=== PATIENT | female | born 1950 | race Caucasian/White ===

== ENCOUNTER 2019-10-01 01:03 | Inpatient (IN) | payer MEDICARE, MEDICAID ==
[~2019-10-01] VITALS: Ht 154.9 cm; Wt 61.4 kg
[~2019-10-01 01:03] MED LIST: ASPI-612 PO; CEPH250C92 PO; DULO-31 PO; ESOM40CA PO; HYDR1TAB PO; NOR5T PO; OMEP-84 PO; RAME8TAB17 PO; VAL5T PO; [UNRECOGNIZED DRUG - REMARK]
--- NOTE | 2019-10-01 01:24 | NUR ---
PT RECEIVED 2MG OF NARCAN WITH EMS
[2019-10-01] MEDS ORDERED: ondansetron/PF 4mg/2ml inj IV ONE (01:45)
[2019-10-01] MEDS ORDERED: normal saline 1000ML IV soln IVB ONE ×2 (01:45→03:30)
[2019-10-01 02:06] LABS: MEAN CORPUSCULAR VOLUME 85.3 FL (78-98); MEAN PLATELET VOLUME 9.5 FL (7.4-10.4); RED CELL DISTRIBUTION WIDTH 14.5 % (11.5-14.5)
[2019-10-01 02:08] LABS: HEMATOCRIT 39.3 % (35.0-45.0); MEAN CORPUSCULAR HEMOGLOBIN 28.2 PG (27.0-31.0); PLATELET COUNT 246 X10'3 (140-440); RED BLOOD COUNT 4.61 X10'6 (4.20-5.60); WHITE BLOOD COUNT 17.4 X10'3 (4.5-11.0)
--- NOTE | 2019-10-01 02:09 | NUR ---
WHEN ASKING THE SON ABOUT PT MEDICAL HX, HE REPORTS THAT SHE HAS HAD DIFFICULTY WITH MEMORY RECENTLY.
[2019-10-01 02:11] LABS: PARTIAL THROMBOPLASTIN TIME 23 SECONDS (22-32)
[2019-10-01 02:35] LABS: NUCLEATED RED BLOOD CELLS 1 /100WBC (0-0); PLATELET ESTIMATE NORMAL; TOTAL CELLS COUNTED 100
[2019-10-01 02:36] LABS: ANISOCYTOSIS 1+; ELLIPTOCYTES FEW
[2019-10-01 02:38] LABS: COLOR,URINE YELLOW (Yellow); GLUCOSE, URINE 250 mg/dl (Neg); KETONES,URINE NEGATIVE (Neg); LEUKOCYTE ESTERASE ,URINE MODERATE (Neg); NITRITES, URINE NEGATIVE (Neg); OCCULT BLOOD,URINE SMALL (Neg); PROTEIN,URINE TRACE mg/dl (Neg); UROBILINOGEN,URINE 0.2 E.U/dL (0.2-1.0)
[2019-10-01 02:40] LABS: ALANINE AMINOTRANSFERASE 15 U/L (12-78); ALBUMIN 3.3 G/DL (3.4-5.0); ALBUMIN/GLOBULIN RATIO 0.8 (1.1-1.5); ALKALINE PHOSPHATASE 139 IU/L (46-116); ANION GAP 18 (8-16); ASPARTATE AMINO TRANSFERASE 15 U/L (10-37); BILIRUBIN,TOTAL 0.3 MG/DL (0.1-1.0); BLOOD UREA NITROGEN 22 MG/DL (7-18); BUN/CREATININE RATIO 8.7 (6.6-38.0); CALCIUM 8.6 MG/DL (8.5-10.1); CHLORIDE 102 MMOL/L (99-107); CREATININE 2.52 MG/DL (0.40-0.90); ETHANOL < 0.010 GM/DL (0.0-0.010); GLUCOSE 308 MG/DL (70-104); MAGNESIUM 1.9 MG/DL (1.5-2.4); POTASSIUM 3.7 MMOL/L (3.5-5.1); SODIUM 142 MMOL/L (135-145); TOTAL CARBON DIOXIDE 22.2 MMOL/L (24-32); TOTAL PROTEIN 7.2 G/DL (6.4-8.2); eGFR 19 ML/MIN
[2019-10-01 02:46] LABS: UA COLLECTION TYPE NON-SPECIFIED
[2019-10-01 02:47] LABS: BACTERIA,URINE FEW /HPF (Neg); CLARITY,URINE SLIGHTLY CLOUDY (Clear); RBC,URINE 0-2 /HPF (0-2); SQUAMOUS EPITHELIAL CELL,UR MODERATE /LPF (FEW); WBC CLUMPS,URINE FEW /HPF (NEGATIVE)
[2019-10-01 02:51] LABS: URINE AMPHETAMINE SCREEN NEGATIVE (Neg); URINE BARBITUATE SCREEN NEGATIVE (Neg); URINE BENZODIAZEPINES SCREEN POSITIVE (Neg); URINE CANNABINOID SCREEN NEGATIVE (Neg); URINE COCAINE SCREEN NEGATIVE (Neg); URINE METHADONE SCREEN NEGATIVE (Neg); URINE OPIATE SCREEN POSITIVE (Neg); URINE PHENCYCLIDINE SCREEN NEGATIVE (Neg)
[2019-10-01] MEDS ORDERED: SUMA25TA35 PO (03:20)
[2019-10-01] MEDS ORDERED: DIAZ5TAB4 PO (03:20)
[2019-10-01] MEDS ORDERED: MORP15TA PO (03:20)
[2019-10-01] MEDS ORDERED: CEPH-571 PO (03:20)
[2019-10-01] MEDS ORDERED: CLON-529 PO (03:20)
[2019-10-01] MEDS ORDERED: CefTRIAXone/D5W-Rocephin 1gm 50 ML IV ONE (03:30)
[2019-10-01] MEDS ORDERED: magnesium hydroxide 30ml (MOM) UD suspension PO PRN (04:50)
[2019-10-01] MEDS ORDERED: acetaminophen 325mg tablet PO PRN ×2 (04:50→10:00)
[2019-10-01] MEDS ORDERED: potassium Cl 20 mEq SR tablet PO PRN (04:50)
[2019-10-01] MEDS ORDERED: metoclopramide 5 mg/ml inj IV PRN (04:50)
[2019-10-01] MEDS ORDERED: HYDROcodone/acetaminophen 5mg/325mg tablet PO PRN (04:50)
[2019-10-01] MEDS ORDERED: SUMAtriptan 25 MG tablet PO PRN (04:55)
--- NOTE | 2019-10-01 06:08 | NUR ---
Arun guzman in EDM - 10/01/19 at 0610 by CALEB PATIENT'S BELONGINGS INVENTORIED BY [facility] AND PLACED IN ER AMBULANCE BAY LOCKERS. PATIENT'S MEDICATIONS ARE INVENTORIED AND IN PHARMACY PATIENT IS ON HER RIGHT SIDE EYES CLOSED RR EVEN AND UNLABORED
[2019-10-01] MEDS: mag hydrox/Alum hydrox/simeth 30ml oral suspension PO PRN ×2 (06:24→14:28)
--- NOTE | 2019-10-01 06:38 | NUR ---
Patient in room ED 1. I have received report from ROE Sung in the Emergenc Room and had the opportunity to ask questions and assume patient care.
[2019-10-01 07:00] VITALS: BP 146/79
--- NOTE | 2019-10-01 07:11 | NUR ---
Pt transfered up to PCU via [facility] by ER Staff at 0700.
[2019-10-01 08:00] VITALS: BP 146/79
[2019-10-01] MEDS: K and/or MAG REPLACEMENT MC SCH (08:00)
[2019-10-01] MEDS: ondansetron/PF 4mg/2ml inj IV PRN (08:17)
[2019-10-01] MEDS: normal saline 1000ml 1,000 ML IV SCH ×2 (09:34→14:50)
[2019-10-01] MEDS: busPIRone 5mg tablet PO SCH ×3 (09:34→20:05)
[2019-10-01] MEDS: cloNIDine 0.1 mg tablet PO SCH ×2 (09:35→20:05)
[2019-10-01] MEDS: amLODIPine 5mg tablet PO SCH (09:35)
[2019-10-01] MEDS: aspirin 81mg tablet.DR PO SCH (09:35)
[2019-10-01] MEDS: heparin, porcine 5000 units/ml vial SQ SCH ×2 (09:36→20:05)
--- NOTE | 2019-10-01 10:30 | NUR ---
Paged Dr. Quinn for medication order clarification. PAGER ID: [phone] MESSAGE: [id number], Saldana. Could you please clarify the morphine PO order. Thank you. Cassi [id number].
[2019-10-01 11:00] VITALS: BP 131/67
--- NOTE | 2019-10-01 11:23 | NUR ---
PAGER ID: [phone] MESSAGE: [id number], Saldana. Could you please clarify the morphine order for this patient. Cassi [phone]
[2019-10-01] MEDS: morphine IR (immed. release) 30mg tablet PO PRN (12:27)
[2019-10-01 15:00] VITALS: BP 140/74
[2019-10-01 18:00] VITALS: BP 145/72
--- NOTE | 2019-10-01 18:23 | NUR ---
[place] documentation: I have reviewed and agree with interventions, assessments performed and documented by Josefina BEAN. [facility] Medication Administration: For this medication-pass time frame, medication were reviewed, dispensed, administered and documented per hospital policy by Josefina BEAN.
--- NOTE | 2019-10-01 18:25 | NUR ---
Problems reprioritized. Patient report given, questions answered & plan of care reviewed with Ameena BEAN.
--- NOTE | 2019-10-01 18:29 | NUR ---
Patient in room PCU 3025. I have received report from Cassi BEAN and Josefina BEAN and had the opportunity to ask questions and assume patient care.
[2019-10-01] MEDS: diazepam 5mg tablet PO PRN (18:47)
[2019-10-01 22:00] VITALS: BP 125/64
[2019-10-02] VITALS (7 sets, daily range): BP systolic 127–170; BP diastolic 64–81
[2019-10-02] MEDS: normal saline 1000ml 1,000 ML IV SCH ×3 (00:50→14:39)
[2019-10-02] MEDS: ondansetron/PF 4mg/2ml inj IV PRN (02:05)
[2019-10-02] MEDS: CefTRIAXone/D5W-Rocephin 1gm 50 ML IV SCH (03:03)
--- NOTE | 2019-10-02 06:27 | NUR ---
Problems reprioritized. Patient report given, questions answered & plan of care reviewed with Cassi BEAN.
[2019-10-02 06:33] LABS: ALANINE AMINOTRANSFERASE 15 U/L (12-78); ALBUMIN 2.6 G/DL (3.4-5.0); ALBUMIN/GLOBULIN RATIO 0.8 (1.1-1.5); ALKALINE PHOSPHATASE 94 IU/L (46-116); ANION GAP 7 (8-16); ASPARTATE AMINO TRANSFERASE 33 U/L (10-37); BILIRUBIN,TOTAL 0.3 MG/DL (0.1-1.0); BLOOD UREA NITROGEN 18 MG/DL (7-18); BUN/CREATININE RATIO 14.5 (6.6-38.0); CALCIUM 8.7 MG/DL (8.5-10.1); CHLORIDE 104 MMOL/L (99-107); CREATININE 1.24 MG/DL (0.40-0.90); GLUCOSE 103 MG/DL (70-104); POTASSIUM 3.7 MMOL/L (3.5-5.1); SODIUM 138 MMOL/L (135-145); TOTAL CARBON DIOXIDE 26.6 MMOL/L (24-32); TOTAL PROTEIN 5.9 G/DL (6.4-8.2); eGFR 43 ML/MIN
[2019-10-02 07:50] LABS: BASOPHILS % (AUTO) 0.3 % (0-1); EOSINOPHILS % (AUTO) 0.1 % (0-6); HEMATOCRIT 30.2 % (35.0-45.0); HEMOGLOBIN 10.4 g/dl (12.0-16.0); LYMPHOCYTES # (AUTO) 1.1 X10'3 (1.1-4.8); LYMPHOCYTES % (AUTO) 10.8 % (21-51); MEAN CORPUSCULAR HEMOGLOBIN 28.7 PG (27.0-31.0); MEAN CORPUSCULAR HGB CONC 34.5 g/dL (33.0-36.5); MEAN CORPUSCULAR VOLUME 83.2 FL (78-98); MEAN PLATELET VOLUME 9.8 FL (7.4-10.4); MONOCYTES # (AUTO) 0.9 X10'3 (0-0.9); MONOCYTES % (AUTO) 8.1 % (2-12); NEUTROPHILS # (AUTO) 8.6 X10'3 (1.8-7.7); NEUTROPHILS % (AUTO) 80.7 % (42-75); PLATELET COUNT 128 X10'3 (140-440); RED BLOOD COUNT 3.63 X10'6 (4.20-5.60); RED CELL DISTRIBUTION WIDTH 14.3 % (11.5-14.5); WHITE BLOOD COUNT 10.6 X10'3 (4.5-11.0)
[2019-10-02] MEDS: K and/or MAG REPLACEMENT MC SCH (08:00)
[2019-10-02] MEDS: busPIRone 5mg tablet PO SCH ×3 (08:07→20:12)
[2019-10-02] MEDS: cloNIDine 0.1 mg tablet PO SCH ×2 (08:08→19:03)
[2019-10-02] MEDS: aspirin 81mg tablet.DR PO SCH (08:08)
[2019-10-02] MEDS: amLODIPine 5mg tablet PO SCH (08:08)
[2019-10-02] MEDS: heparin, porcine 5000 units/ml vial SQ SCH ×2 (08:09→19:03)
[2019-10-02] MEDS: morphine IR (immed. release) 30mg tablet PO PRN ×2 (08:27→17:27)
[2019-10-02] MEDS: diazepam 5mg tablet PO PRN ×2 (12:07→19:02)
--- NOTE | 2019-10-02 12:14 | NUR ---
PAGER ID: [phone] MESSAGE: [phone], Shana. Patient is c/o pain during urination. Please adviseCassi [phone]
[2019-10-02] MEDS: phenazopyridine 100mg tablet PO SCH ×2 (12:38→19:03)
--- NOTE | 2019-10-02 14:27 | NUR ---
promotional table spacer PAGER ID: [phone] MESSAGE: [id number], Saldana. Patient has Positive Bld Cx: aerobic Right a/c, gram + cocci in clusters from 10/01. Cassi [phone]
--- NOTE | 2019-10-02 18:10 | NUR ---
Patient in room PCU 3025. I have received report from Cassi BEAN and had the opportunity to ask questions and assume patient care.
--- NOTE | 2019-10-02 18:28 | NUR ---
Problems reprioritized. Patient report given, questions answered & plan of care reviewed with Sonia Lee. Patient stable at transfer of care.
--- NOTE | 2019-10-02 18:47 | NUR ---
Patient is requesting to speak with case management regarding possibly discharging to a rehab facility when she is ready to discharge. Page sent to case management.
[2019-10-02] MEDS: lactobacillus rhamnosus 10,000 MMU CELLS/CAPSULE PO SCH (19:03)
[2019-10-03] VITALS (7 sets, daily range): BP systolic 143–162; BP diastolic 74–78
[2019-10-03] MEDS: morphine IR (immed. release) 30mg tablet PO PRN ×2 (03:07→15:30)
[2019-10-03] MEDS: CefTRIAXone/D5W-Rocephin 1gm 50 ML IV SCH (03:08)
[2019-10-03] MEDS: normal saline 1000ml 1,000 ML IV SCH ×2 (03:09→12:44)
[2019-10-03 05:03] LABS: BASOPHILS % (AUTO) 0.1 % (0-1); EOSINOPHILS % (AUTO) 0 % (0-6); HEMATOCRIT 29.6 % (35.0-45.0); HEMOGLOBIN 10.3 g/dl (12.0-16.0); LYMPHOCYTES # (AUTO) 0.7 X10'3 (1.1-4.8); LYMPHOCYTES % (AUTO) 7.7 % (21-51); MEAN CORPUSCULAR HEMOGLOBIN 28.5 PG (27.0-31.0); MEAN CORPUSCULAR HGB CONC 34.9 g/dL (33.0-36.5); MEAN CORPUSCULAR VOLUME 81.8 FL (78-98); MEAN PLATELET VOLUME 9.6 FL (7.4-10.4); MONOCYTES # (AUTO) 0.7 X10'3 (0-0.9); MONOCYTES % (AUTO) 7.5 % (2-12); NEUTROPHILS # (AUTO) 7.9 X10'3 (1.8-7.7); NEUTROPHILS % (AUTO) 84.7 % (42-75); PLATELET COUNT 146 X10'3 (140-440); RED BLOOD COUNT 3.61 X10'6 (4.20-5.60); RED CELL DISTRIBUTION WIDTH 14.2 % (11.5-14.5); WHITE BLOOD COUNT 9.3 X10'3 (4.5-11.0)
[2019-10-03 06:00] LABS: ALANINE AMINOTRANSFERASE 14 U/L (12-78); ALBUMIN 2.5 G/DL (3.4-5.0); ALBUMIN/GLOBULIN RATIO 0.7 (1.1-1.5); ALKALINE PHOSPHATASE 92 IU/L (46-116); ANION GAP 11 (8-16); ASPARTATE AMINO TRANSFERASE 29 U/L (10-37); BILIRUBIN,TOTAL 0.3 MG/DL (0.1-1.0); BLOOD UREA NITROGEN 17 MG/DL (7-18); BUN/CREATININE RATIO 10.1 (6.6-38.0); CALCIUM 9.2 MG/DL (8.5-10.1); CHLORIDE 112 MMOL/L (99-107); CREATININE 1.68 MG/DL (0.40-0.90); GLUCOSE 120 MG/DL (70-104); POTASSIUM 3.4 MMOL/L (3.5-5.1); SODIUM 146 MMOL/L (135-145); TOTAL CARBON DIOXIDE 22.9 MMOL/L (24-32); TOTAL PROTEIN 6.3 G/DL (6.4-8.2); eGFR 30 ML/MIN
--- NOTE | 2019-10-03 06:18 | NUR ---
Problems reprioritized. Patient report given, questions answered & plan of care reviewed with Yaron BEAN.
--- NOTE | 2019-10-03 06:31 | NUR ---
Patient in room PCU 3025. I have received report from Sonia BEAN and had the opportunity to ask questions and assume patient care.
[2019-10-03] MEDS: diazepam 5mg tablet PO PRN ×2 (07:12→17:48)
[2019-10-03] MEDS: lactobacillus rhamnosus 10,000 MMU CELLS/CAPSULE PO SCH ×2 (07:13→20:19)
[2019-10-03] MEDS: phenazopyridine 100mg tablet PO SCH ×3 (07:13→17:46)
[2019-10-03] MEDS: aspirin 81mg tablet.DR PO SCH (07:13)
[2019-10-03] MEDS: amLODIPine 5mg tablet PO SCH (07:13)
[2019-10-03] MEDS: cloNIDine 0.1 mg tablet PO SCH ×2 (07:13→20:19)
[2019-10-03] MEDS: busPIRone 5mg tablet PO SCH ×3 (07:13→20:19)
[2019-10-03] MEDS: heparin, porcine 5000 units/ml vial SQ SCH ×2 (07:14→20:19)
[2019-10-03] MEDS: K and/or MAG REPLACEMENT MC SCH (08:00)
[2019-10-03] MEDS ORDERED: SUMAtriptan 25 MG tablet PO PRN (09:33)
[2019-10-03] MEDS: potassium Cl 20 mEq SR tablet PO PRN ×2 (09:42→17:46)
--- NOTE | 2019-10-03 16:58 | NUR ---
Patient in room PCU 3025. I have received report from VIKAS Izaguirre and had the opportunity to ask questions and assume patient care.
--- NOTE | 2019-10-03 16:58 | NUR ---
Report given to Joshua BEAN
--- NOTE | 2019-10-03 18:08 | NUR ---
Problems reprioritized. Patient report given, questions answered & plan of care reviewed with VIKAS Scott.
--- NOTE | 2019-10-03 18:18 | NUR ---
Patient in room PCU 3025. I have received report from Joshua BEAN and had the opportunity to ask questions and assume patient care.
[2019-10-03] MEDS: docusate sod 100mg capsule PO SCH (20:19)
[2019-10-04] MEDS: potassium Cl 20 mEq SR tablet PO PRN (00:09)
[2019-10-04] MEDS: morphine IR (immed. release) 30mg tablet PO PRN ×2 (00:09→07:43)
[2019-10-04] MEDS: normal saline 1000ml 1,000 ML IV SCH ×2 (00:13→12:50)
[2019-10-04 02:00] VITALS: BP 158/79
[2019-10-04] MEDS: CefTRIAXone/D5W-Rocephin 1gm 50 ML IV SCH (02:18)
[2019-10-04 04:56] LABS: BASOPHILS # (AUTO) 0.1 X10'3 (0-0.2); BASOPHILS % (AUTO) 0.5 % (0-1); EOSINOPHILS # (AUTO) 0.1 X10'3 (0-0.9); HEMATOCRIT 34.8 % (35.0-45.0); LYMPHOCYTES # (AUTO) 1.6 X10'3 (1.1-4.8); LYMPHOCYTES % (AUTO) 15.3 % (21-51); MEAN CORPUSCULAR HEMOGLOBIN 28.2 PG (27.0-31.0); MEAN CORPUSCULAR HGB CONC 34.4 g/dL (33.0-36.5); MEAN CORPUSCULAR VOLUME 82.1 FL (78-98); MEAN PLATELET VOLUME 9.6 FL (7.4-10.4); MONOCYTES % (AUTO) 9.7 % (2-12); NEUTROPHILS # (AUTO) 7.6 X10'3 (1.8-7.7); NEUTROPHILS % (AUTO) 73.5 % (42-75); PLATELET COUNT 180 X10'3 (140-440); RED BLOOD COUNT 4.24 X10'6 (4.20-5.60); RED CELL DISTRIBUTION WIDTH 14.2 % (11.5-14.5); WHITE BLOOD COUNT 10.3 X10'3 (4.5-11.0)
[2019-10-04] MEDS: diazepam 5mg tablet PO PRN ×2 (04:58→18:46)
[2019-10-04 05:25] LABS: ALANINE AMINOTRANSFERASE 18 U/L (12-78); ALBUMIN 2.7 G/DL (3.4-5.0); ALBUMIN/GLOBULIN RATIO 0.6 (1.1-1.5); ALKALINE PHOSPHATASE 99 IU/L (46-116); ANION GAP 9 (8-16); ASPARTATE AMINO TRANSFERASE 23 U/L (10-37); BILIRUBIN,TOTAL 0.4 MG/DL (0.1-1.0); BLOOD UREA NITROGEN 18 MG/DL (7-18); BUN/CREATININE RATIO 9.2 (6.6-38.0); CALCIUM 9.4 MG/DL (8.5-10.1); CHLORIDE 112 MMOL/L (99-107); CREATININE 1.96 MG/DL (0.40-0.90); GLUCOSE 109 MG/DL (70-104); POTASSIUM 3.7 MMOL/L (3.5-5.1); SODIUM 146 MMOL/L (135-145); TOTAL CARBON DIOXIDE 25.3 MMOL/L (24-32); TOTAL PROTEIN 6.9 G/DL (6.4-8.2); eGFR 25 ML/MIN
--- NOTE | 2019-10-04 06:08 | NUR ---
Problems reprioritized. Patient report given, questions answered & plan of care reviewed with Natalee BEAN.
--- NOTE | 2019-10-04 06:49 | NUR ---
Patient in room PCU 3025B. I have received report from Sonia BEAN and had the opportunity to ask questions and assume patient care.
[2019-10-04 07:00] VITALS: BP 164/85
[2019-10-04] MEDS: busPIRone 5mg tablet PO SCH ×3 (07:32→19:54)
[2019-10-04] MEDS: heparin, porcine 5000 units/ml vial SQ SCH ×2 (07:33→19:55)
[2019-10-04] MEDS: cloNIDine 0.1 mg tablet PO SCH ×2 (07:33→19:54)
[2019-10-04] MEDS: phenazopyridine 100mg tablet PO SCH ×3 (07:34→17:17)
[2019-10-04] MEDS: docusate sod 100mg capsule PO SCH ×2 (07:34→19:55)
[2019-10-04] MEDS: amLODIPine 5mg tablet PO SCH (07:34)
[2019-10-04] MEDS: lactobacillus rhamnosus 10,000 MMU CELLS/CAPSULE PO SCH ×2 (07:34→19:54)
[2019-10-04] MEDS: aspirin 81mg tablet.DR PO SCH (07:34)
[2019-10-04] MEDS: K and/or MAG REPLACEMENT MC SCH (08:00)
--- NOTE | 2019-10-04 09:27 | NUR ---
Paged Dr. Quinn regarding: PAGER ID: [phone] MESSAGE: Little BEAN, [id number]. Regarding Shana, N. 3023N, IV infiltrated, pt wanted to ask if she needs a new one before we are allowed to attempt. Thank you!
--- NOTE | 2019-10-04 10:05 | NUR ---
IV infiltrated, discontinued at 1000. Sent page to MD Cheyenne regarding placing new IV. If not sent to rehab today, will place new IV.
--- NOTE | 2019-10-04 10:36 | NUR ---
Per MD Cheyenne no IV needs to be reinserted due to pts proabable discharge to rehab today. If discharge doesnt take place, will place a new IV.
[2019-10-04 11:00] VITALS: BP 145/71
[2019-10-04 15:00] VITALS: BP 101/64
--- NOTE | 2019-10-04 16:32 | NUR ---
Page sent to MD Cheyenne regarding additional pain medication. PAGER ID: [phone] MESSAGE: Little BEAN [email or web address]. Regarding [id number]. Pt not d/c to rehab until tomorrow, she is requesting additional pain medication. States takes 800 mg ibuprofen at home. Thanks!
--- NOTE | 2019-10-04 16:42 | NUR ---
Paged Dr Quinn regarding pt IV access PAGER ID: [phone] MESSAGE: Natalee ankita [phone]. RE Jerri Saldana [id number]. Pt has no IV access. 3 nurses attempted with no success. Pt has 0300 IV ABX ordered. Discharging to rehab tomorrow AM. Please advise.
--- NOTE | 2019-10-04 17:48 | NUR ---
New orders from Dr Quinn that patient DOES NOT NEED IV access, discontinued IV Rocephin. Also new order for [employer] 5/325, PRN q4 hr.
[2019-10-04] MEDS ORDERED: HYDROcodone/acetaminophen 5mg/325mg tablet PO PRN (17:50)
[2019-10-04 18:00] VITALS: BP 118/64
--- NOTE | 2019-10-04 18:13 | NUR ---
Problems reprioritized. Patient report given, questions answered & plan of care reviewed with VIKAS Weeks .
--- NOTE | 2019-10-04 18:15 | NUR ---
Patient in room PCU 3028V I have received report from VIKAS Albright and had the opportunity to ask questions and assume patient care. Pt has no IV access because she supposed to be discharge today.
--- NOTE | 2019-10-04 18:15 | NUR ---
New hire documentation: I have reviewed and agree with all interventions, assessments performed and documented by Little BEAN.
[2019-10-04 23:00] VITALS: BP 130/67
--- NOTE | 2019-10-05 01:00 | NUR ---
Pt has an order for NS at 100ml/hr. for 09/03/19
[2019-10-05] MEDS: morphine IR (immed. release) 30mg tablet PO PRN (01:16)
[2019-10-05 02:00] VITALS: BP 161/79
[2019-10-05 02:20] VITALS: BP 145/82
[2019-10-05] MEDS: normal saline 1000ml 1,000 ML IV SCH (03:13)
[2019-10-05 04:58] LABS: BASOPHILS % (AUTO) 0.4 % (0-1); EOSINOPHILS % (AUTO) 0.3 % (0-6); HEMATOCRIT 33.8 % (35.0-45.0); HEMOGLOBIN 11.7 g/dl (12.0-16.0); LYMPHOCYTES # (AUTO) 1.1 X10'3 (1.1-4.8); LYMPHOCYTES % (AUTO) 9.3 % (21-51); MEAN CORPUSCULAR HGB CONC 34.6 g/dL (33.0-36.5); MEAN CORPUSCULAR VOLUME 80.9 FL (78-98); MEAN PLATELET VOLUME 9.2 FL (7.4-10.4); MONOCYTES # (AUTO) 0.9 X10'3 (0-0.9); MONOCYTES % (AUTO) 8.1 % (2-12); NEUTROPHILS # (AUTO) 9.5 X10'3 (1.8-7.7); NEUTROPHILS % (AUTO) 81.9 % (42-75); PLATELET COUNT 191 X10'3 (140-440); RED BLOOD COUNT 4.17 X10'6 (4.20-5.60); RED CELL DISTRIBUTION WIDTH 13.7 % (11.5-14.5); WHITE BLOOD COUNT 11.6 X10'3 (4.5-11.0)
[2019-10-05 05:33] LABS: ALANINE AMINOTRANSFERASE 14 U/L (12-78); ALBUMIN 2.6 G/DL (3.4-5.0); ALBUMIN/GLOBULIN RATIO 0.7 (1.1-1.5); ALKALINE PHOSPHATASE 97 IU/L (46-116); ANION GAP 8 (8-16); ASPARTATE AMINO TRANSFERASE 18 U/L (10-37); BILIRUBIN,TOTAL 0.5 MG/DL (0.1-1.0); BLOOD UREA NITROGEN 22 MG/DL (7-18); CALCIUM 9.3 MG/DL (8.5-10.1); CHLORIDE 107 MMOL/L (99-107); CREATININE 1.83 MG/DL (0.40-0.90); GLUCOSE 110 MG/DL (70-104); POTASSIUM 3.2 MMOL/L (3.5-5.1); SODIUM 141 MMOL/L (135-145); TOTAL CARBON DIOXIDE 25.9 MMOL/L (24-32); TOTAL PROTEIN 6.6 G/DL (6.4-8.2); eGFR 27 ML/MIN
[2019-10-05 06:00] VITALS: BP 155/79
--- NOTE | 2019-10-05 06:25 | NUR ---
Problems reprioritized. Patient report given, questions answered & plan of care reviewed with VIKAS Martinez . Patient stable at shift change.
[2019-10-05] MEDS: diazepam 5mg tablet PO PRN (07:40)
[2019-10-05] MEDS: docusate sod 100mg capsule PO SCH (08:00)
[2019-10-05] MEDS: K and/or MAG REPLACEMENT MC SCH (08:00)
[2019-10-05] MEDS ORDERED: potassium Cl 20 mEq SR tablet PO PRN ×2 (08:05)
[2019-10-05] MEDS ORDERED: potassium CL 10mEq/100ml bag 100 ML IV PRN (08:05)
[2019-10-05] MEDS: phenazopyridine 100mg tablet PO SCH (08:23)
[2019-10-05] MEDS: aspirin 81mg tablet.DR PO SCH (08:24)
[2019-10-05] MEDS: amLODIPine 5mg tablet PO SCH (08:24)
[2019-10-05] MEDS: busPIRone 5mg tablet PO SCH (08:24)
[2019-10-05] MEDS: cloNIDine 0.1 mg tablet PO SCH (08:24)
[2019-10-05] MEDS: lactobacillus rhamnosus 10,000 MMU CELLS/CAPSULE PO SCH (08:24)
[2019-10-05] MEDS: heparin, porcine 5000 units/ml vial SQ SCH (08:25)
[2019-10-05 09:02] LABS: MAGNESIUM 1.8 MG/DL (1.5-2.4)
[2019-10-05] MEDS ORDERED: CEPH250T PO (09:30)
[2019-10-05 10:40] LABS: D-DIMER 9.71 MG/L FEU (0-0.50)
--- NOTE | 2019-10-05 10:40 | NUR ---
patient returned from xray, new brick picker time for caleb nascimento is 1234
[2019-10-05 11:00] VITALS: BP 166/62
--- NOTE | 2019-10-05 12:40 | NUR ---
transport at the bedside
== END 2019-10-05 13:21 | DRG 917 ==
LOC: ER 01:04 → ED HOLD 04:50 → PCU 3S 06:58
PROVIDERS: ADMIT Internal Medicine; ATTEND Internal Medicine
DX: T40.2X1A Poisoning by other opioids, accidental (unintentional), initial encounter (principal); J69.0 Pneumonitis due to inhalation of food and vomit; G92 Toxic encephalopathy; J96.21 Acute and chronic respiratory failure with hypoxia; N17.9 Acute kidney failure, unspecified; N39.0 Urinary tract infection, site not specified; F11.23 Opioid dependence with withdrawal; G89.29 Other chronic pain; I12.9 Hypertensive chronic kidney disease with stage 1 through stage 4 chronic kidney disease, or unspecified chronic kidney disease; F32.9 Major depressive disorder, single episode, unspecified; F41.9 Anxiety disorder, unspecified; G43.909 Migraine, unspecified, not intractable, without status migrainosus; D64.9 Anemia, unspecified; M54.5 Low back pain; M54.9 Dorsalgia, unspecified; I25.10 Atherosclerotic heart disease of native coronary artery without angina pectoris; J44.9 Chronic obstructive pulmonary disease, unspecified; N18.3 Chronic kidney disease, stage 3 (moderate); I25.2 Old myocardial infarction; Z79.899 Other long term (current) drug therapy; Z85.42 Personal history of malignant neoplasm of other parts of uterus; Z90.710 Acquired absence of both cervix and uterus; Z88.5 Allergy status to narcotic agent; Z88.8 Allergy status to other drugs, medicaments and biological substances
CPT/HCPCS: 36415; 71045; 71111; 73502; 80053; 80305; 80320; 81001; 83605; 83735; 84484; 85025; 85379; 85610; 85730; 87040; 87077; 87081; 87088; 87186; 93005; 96361; 96374; 96375; 97112; 97116; 97161; 97530; 97535; 99291; G0378; J0696; J1644; J2405; J7030

== ENCOUNTER 2021-07-03 09:47 | Emergency (ER) | payer MEDICARE, MEDICAID ==
[~2021-07-03] VITALS: Ht 154.9 cm; Wt 47.7 kg
[~2021-07-03 09:47] MED LIST changes: -CEPH250C92 PO; +CLON-529 PO; +DIAZ5TAB4 PO; -DULO-31 PO; -ESOM40CA PO; -HYDR1TAB PO; +MORP15TA PO; -OMEP-84 PO; -RAME8TAB17 PO; +SUMA25TA35 PO; -VAL5T PO; -[UNRECOGNIZED DRUG - REMARK]
[2021-07-03 11:16] LABS: CLARITY,URINE CLEAR (Clear); COLOR,URINE STRAW (Yellow); GLUCOSE, URINE NEGATIVE (Neg); KETONES,URINE NEGATIVE (Neg); LEUKOCYTE ESTERASE ,URINE NEGATIVE (Neg); NITRITES, URINE NEGATIVE (Neg); OCCULT BLOOD,URINE NEGATIVE (Neg); PH,URINE 6.5 (4.8-8.0); PROTEIN,URINE NEGATIVE (Neg); UROBILINOGEN,URINE 0.2 E.U/dL (0.2-1.0)
[2021-07-03 11:17] LABS: UA COLLECTION TYPE CLN CATCH MIDSTREAM
[2021-07-03 14:52] VITALS: BP 137/63
== END 2021-07-03 15:04 | disposition home or self-care (01) ==
LOC: ER 09:48
DX: R10.2 Pelvic and perineal pain (principal); R10.84 Generalized abdominal pain; G43.909 Migraine, unspecified, not intractable, without status migrainosus; I25.10 Atherosclerotic heart disease of native coronary artery without angina pectoris; I10 Essential (primary) hypertension; I25.2 Old myocardial infarction; G89.29 Other chronic pain; F41.9 Anxiety disorder, unspecified; F32.9 Major depressive disorder, single episode, unspecified; Z86.69 Personal history of other diseases of the nervous system and sense organs; Z87.440 Personal history of urinary (tract) infections; Z90.710 Acquired absence of both cervix and uterus; Z98.890 Other specified postprocedural states; Z88.5 Allergy status to narcotic agent; Z88.8 Allergy status to other drugs, medicaments and biological substances; Z79.82 Long term (current) use of aspirin; Z79.899 Other long term (current) drug therapy
CPT/HCPCS: 81003; 99283